=== PATIENT | female | born 1980 | race Caucasian/White ===

== ENCOUNTER 2017-02-05 20:02 | Emergency (ER) | payer MEDICAID, OTHER ==
[~2017-02-05] VITALS: Ht 170.2 cm; Wt 96.0 kg
[2017-02-05 20:37] VITALS: BP 134/85; PULSE 90; RESP 18; TEMP 98.3; O2SAT 100
[2017-02-05] MEDS ORDERED: VENL75TA PO (20:47)
--- NOTE | 2017-02-05 22:25 | PD ---
HPI Chief Complaint: Edema Time Seen by Provider: 22:23 Travel History International Travel<30 days: No Contact w/Intl Traveler<30days: No Traveled to known affect area: No History of Present Illness HPI 36-year-old female presents to the emergency department for evaluation of swelling of left foot and sunburn. The patient is here on vacation from [place]. She was out at the beach yesterday and today and got sunburned on her legs, feet and generally all over. States that this afternoon she was sitting down and noticed that she had some swelling in her feet, worse on the left side. States that she has a little bit of soreness in the left foot as well. Denies any injury or trauma to the foot or ankle. Admits she was sitting in a chair most of today with her feet down. Denies any numbness or tingling, weakness, fever, chills, calf pain. She denies any medical conditions. No other complaints. PFSH Past Medical History Depression: Yes Diminished Hearing: No Immunizations Current: Yes Tetanus Vaccination: Unknown Influenza Vaccination: Yes ?: Not LMP: 01/25/17 Past Surgical History Oral Surgery: Yes Social History Alcohol Use: No Tobacco Use: Yes (/ pk) Substance Use: No Allergies-Medications (Allergen,Severity, Reaction): Coded Allergies: No Known Allergies (Unverified , 02/05/17) Reported Meds & Prescriptions Reported Meds & Active Scripts Active Reported Effexor (Venlafaxine HCl) 75 Mg Tab 75 Mg PO DAILY Review of Systems Except as stated in HPI: all other systems reviewed are Neg Physical Exam Narrative GENERAL: Well-nourished and well-developed pleasant female patient in no acute distress. SKIN: Warm and dry. Sunburn noted on the tops of feet and anterior legs. Also noted on arms, chest and back. HEAD: Normocephalic and atraumatic. EYES: No injection, drainage, or hyphema noted. PERRLA. EOMI. ENT: No nasal drainage noted. Oropharynx is clear. NECK: Supple and the trachea is midline. CARDIOVASCULAR: Regular rate and rhythm. RESPIRATORY: Breath sounds are equal bilaterally with no accessory muscle use, wheezing, rhonchi, or crackles. MUSCULOSKELETAL: Swelling of lateral feet bilaterally, minimally worse on the left foot. DP pulses are 2+ bilaterally. No obvious deformities, swelling, cyanosis, or ecchymosis is present throughout the upper and lower extremities. Negative Homans sign. Patient has full range of motion without any signs of neurovascular compromise. NEUROLOGICAL: Awake, alert, and oriented. Normal speech and gait. Cranial nerves are grossly intact. Data Data Last Documented VS Vital Signs Date Time Temp Pulse Resp B/P Pulse Ox O2 Delivery O2 Flow Rate FiO2 02/05/17 20:37 98.3 90 18 134/85 100 MDM Medical Decision Making Medical Screen Exam Complete: Yes Emergency Medical Condition: Yes Differential Diagnosis Sunburn versus dependent edema versus sprain Narrative Course 36-year-old female presents to the emergency department for evaluation of sunburn and swelling of the feet. Patient is afebrile, vital signs are stable. She has only minimal swelling of the feet noted. Legs are neurovascularly intact. No swelling or tenderness of the calves. I suspect that this is secondary to her sunburn. Discussed supportive care. Advised to follow-up with her PCP. Instructed to return for any worsening of symptoms. Patient verbalizes understanding and agreement with treatment plan. Diagnosis Primary Impression: Foot swelling Additional Impression: Sunburn Referrals: Primary Care Physician Patient Instructions: Edema (ED), General Instructions, Sunburn (ED) Additional Instructions: Elevate legs. Stay adequately hydrated. Apply aloe to sunburn. Ibuprofen for pain. Follow-up with your Primary Care Physician. Return to the ED for any acute worsening of symptoms. Med/Other Pt SpecificInfo: No Change to Meds Disposition: 01 DISCHARGE HOME Condition: Stable Graciela Kern Feb 05, 2017 22:25
== END 2017-02-05 22:30 | disposition home or self-care (01) ==
LOC: PHEFT 20:02
DX: R60.0 Localized edema (principal); L55.9 Sunburn, unspecified; F17.210 Nicotine dependence, cigarettes, uncomplicated
CPT/HCPCS: 99283